=== PATIENT | male | born 1995 | race Caucasian/White ===

== ENCOUNTER 2016-08-09 08:51 | Emergency (ER) | payer OTHER ==
[2016-08-09] MEDS ORDERED: FAMOTIDINE/NS 20 MG/50 ML BAG (S0028) As Ordered ONE (09:34)
[2016-08-09] MEDS ORDERED: methylPREDNISolone INJ 125 MG/2 ML VIAL (J2930) As Ordered ONE (09:34)
[2016-08-09] MEDS ORDERED: diphenhydrAMINE INJ 50MG/ML VIAL (J1200) As Ordered ONE (09:34)
--- NOTE | 2016-08-09 11:52 | EDDOCDS ---
Physician Documentation [facility] Name: Jatinder Esquivel Age: 20 yrs Sex: Male : 1995 Arrival Date: 08/09/2016 Time: 08:51 Bed 8 Private MD: Disposition: 08/09/16 11:17 Discharged to Home/Self Care. Impression: Urticaria. - Condition is Stable. - Discharge Instructions: Allergies, [id number]. - Prescriptions for Pepcid 20 mg Oral Tablet - take 1 tablet by ORAL route every 12 hours for 10 days; 20 tablet. Prednisone 20 mg Oral Tablet - take 3 tablet by ORAL route once daily for 5 days; 15 tablet. diphenhydramine HCl 50 mg Oral Capsule - take 1 capsule by ORAL route every 6 hours As needed; 30 capsule. - Medication Reconciliation, Local Pharmacy Hours form. - Follow up: Mariah Velez [facility]; When: 2 - 3 days; Reason: Recheck today's complaints. - Problem is new. - Symptoms have improved. Historical: - Allergies: no known allergies; - Home Meds: 1. amoxicillin Oral Unknown for wisdom teeth removal. Runs out on 08/12 - PMHx: none; - PSHx: wisdom teeth removed; - Social history: Smoking status: Patient states former smoker of tobacco. No barriers to communication noted, The patient speaks fluent Spanish. - Family history: Not pertinent. - : The pt / caregiver states he / she is not on anticoagulants. Home medication list is obtained from the patient. - Exposure Risk Screening:: None identified. Vital Signs: 08/09 09:09 BP 115 / 73; Pulse 75; Resp 14; Temp 98.2(O); Pulse Ox 96% on R/A; Weight 78.02 kg / js13 172 lbs; Height 5 ft. 7 in. (170.18 cm); Pain 0/10; 11:48 BP 124 / 72; Pulse 72; Resp 16; Temp 97.8; jmk 09:09 Body Mass Index 26.94 (78.02 kg, 170.18 cm) js13 MDM: 09:22 diphenhydrAMINE 50 mg IVP once ordered. sd1 09:23 Famotidine 20 mg IVPB once over 30 mins; dilute in 50mL of NS ordered. sd1 09:23 Solu-MEDROL 125 mg IVP once ordered. sd1 10:02 Financial registration complete. mm15 10:13 [facility] Payment Agreement was scanned into [employer] and attached to record. mm15 Administered Medications: : Drug: diphenhydrAMINE 50 mg [diphenhydramine 50 mg/mL injection solution (1 mL)] Route: jmk IVP; Site: left antecubital; 10:39 Follow up: Response: Confirmed pt not driving. [facility] :43 Drug: Famotidine 20 mg [famotidine 10 mg/mL intravenous solution] Route: IVPB; Infused [facility] Over: 30 mins; Site: left antecubital; 10:39 Follow up: IV Status: Completed infusion [facility] :43 Drug: Solu-MEDROL 125 mg [Solu-Medrol 500 mg intravenous solution (125 mg)] Route: IVP; lonk Site: left antecubital; Signatures: Matilde Vasquez MD MD sd1 William Thompson RN RN jmk Sullivan, Jennifer, RN RN js13 Faye Soriano mm15 The chart was reviewed and I authenticate all verbal orders and agree with the evaluation and treatment provided.Attachments: 10:13 [facility] Payment Agreement mm15 MTDD
--- NOTE | 2016-08-09 11:52 | EDDOCDS ---
Nurse's Notes [facility] Name: Jatinder Esquivel Age: 20 yrs Sex: Male : 1995 Arrival Date: 08/09/2016 Time: 08:51 Bed 8 Private MD: Diagnosis: Urticaria Presentation: 08/09 08:55 Red Flag criteria, patient assessed and taken directly to a bed. ml6 09:06 Presenting complaint: Patient states: Patient noticed hives on his arms yesterday at js13 1500. Patient then noticed that at 1900 the hives were all over his body. Patient took 50 mg of Benadryl at 1900 yesterday and woke up this morning with the hives still and his lips swollen. Patient states his throat feels funny. Adult Sepsis Screening: The patient does not have new or worsening altered mentation. Patient's respiratory rate is less than 22. Systolic blood pressure is greater than 100. Patient has a qSOFA score of 0- Negative Sepsis Screen. Suicide/Homicide risk assessment- the patient denies having any suicidal and/or homicidal ideations and does not present with any other emotional, behavioral or mental health complaints. Status: The patient is an active duty fire sprinkler service technician. Transition of care: patient was not received from another setting of care. 09:06 Acuity: JAD Level 3 13 09:06 Method Of Arrival: Walkin/Carried/Asstd js13 Triage Assessment: 09:09 General: Appears in no apparent distress, Behavior is appropriate for age, cooperative. js13 Pain: Denies pain. Pt Declines HIV testing. Neurological: Level of Consciousness is awake, alert. Respiratory: Onset: The symptoms/episode began/occurred gradually, Airway is patent Respiratory effort is even, unlabored, Respiratory pattern is regular, symmetrical, Breath sounds are clear. Derm: Skin is pink, warm & dry. Historical: - Allergies: no known allergies; - Home Meds: 1. amoxicillin Oral Unknown for wisdom teeth removal. Runs out on 08/12 - PMHx: none; - PSHx: wisdom teeth removed; - Social history: Smoking status: Patient states former smoker of tobacco. No barriers to communication noted, The patient speaks fluent Yakut. - Family history: Not pertinent. - : The pt / caregiver states he / she is not on anticoagulants. Home medication list is obtained from the patient. - Exposure Risk Screening:: None identified. Screenin:06 Screening information is obtained from the patient. Fall risk: No risks identified. jmk Assistance ADL's: requires no assistance with activities of daily living. Abuse/DV Screen: The patient / caregiver reports he/she is: not in a situation that causes fear, pain or injury. Nutritional screening: No deficits noted. Advance Directives: Currently, there is no health care proxy. There is no active DNR order. There is no living will. There is no Power of Fireworks Maker. home support is adequate. Assessment: 09:06 General: Appears skin warm and dry color satisfactory. moist pink oral mucosa. easily jmk vocalizes and accommodates own saliva. lips appear swollen. Patent airway. scattered, irregular margin, flat red rash noted over body with concentrated areas about back. center of red areas is contour band saw operator vertical in color than perimeter.. Cardiovascular: Capillary refill < 3 seconds Clubbing of nail beds is absent Heart tones S1 S2 present Edema is absent. Chest pain is denied. Respiratory: Airway is patent Respiratory effort is even, unlabored, Respiratory pattern is regular, Breath sounds are clear bilaterally. 10:36 General: Appears area to posterior chest has faded. swelling to lower lip has decreased jmk slightly. continues to accommodate own saliva and to vocalize without impairment; no observed resp distress. 11:48 General: Appears rash has faded. otehrwise unchanged. [facility] Vital Signs: 09:09 BP 115 / 73; Pulse 75; Resp 14; Temp 98.2(O); Pulse Ox 96% on R/A; Weight 78.02 kg; 13 Height 5 ft. 7 in. (170.18 cm); Pain 0/10; 11:48 BP 124 / 72; Pulse 72; Resp 16; Temp 97.8; jmk 09:09 Body Mass Index 26.94 (78.02 kg, 170.18 cm) [facility] Vitals: 09:09 Log In Time: August 09, 2016 at 08:48. 13 ED Course: 08:54 Patient visited by Faye Soriano. mm15 08:54 Patient moved to Waiting mm15 08:55 Patient moved to [facility]6 08:56 Matilde Vasquez MD is Attending Physician. sd1 09:06 The patient / caregiver is instructed regarding the plan of care and ED course. jmk 09:07 Triage Initiated js13 09:11 Patient visited by Dimple Hurt RN. js13 09:24 Patient visited by Matilde Vasquez MD. sd1 09:44 Inserted saline lock: 20 gauge in left antecubital area. jmk 10:13 [facility] Payment Agreement was scanned into [employer] and attached to record. mm15 10:39 Patient visited by Calin Singer. jml1 11:17 [facility] sd1 11:48 Discontinued lock intact, bleeding controlled, pressure dressing applied, No jmk redness/swelling at site. No procedures done that require assistance. Administered Medications: 09:43 Drug: diphenhydrAMINE 50 mg [diphenhydramine 50 mg/mL injection solution (1 mL)] Route: jmk IVP; Site: left antecubital; 10:39 Follow up: Response: Confirmed pt not driving. k 09:43 Drug: Famotidine 20 mg [famotidine 10 mg/mL intravenous solution] Route: IVPB; Infused liam Over: 30 mins; Site: left antecubital; 10:39 Follow up: IV Status: Completed infusion k 09:43 Drug: Solu-MEDROL 125 mg [Solu-Medrol 500 mg intravenous solution (125 mg)] Route: IVP; jmk Site: left antecubital; Order Results: There are currently no results for this order. Outcome: 11:17 Discharge ordered by Provider. sd1 11:50 Discharge Assessment: Patient awake, alert and oriented x 3. No cognitive and/or k functional deficits noted. Patient verbalized understanding of disposition instructions. patient administered narcotics - no. The following High Risk Discharge criteria are identified: None. Discharged to home ambulatory. Condition: good. Discharge instructions given to patient, Instructed on discharge instructions, follow up and referral plans. medication usage, Demonstrated understanding of instructions, medications, Pt was receptive of discharge instructions/ teaching. Prescriptions given X 3. No special radiology studies were completed. Property :Personal belongings accompany Pt. 11:51 Patient left the ED. [facility] Signatures: Matilde Vasquez MD MD sd1 William ThompsonRN RN jmDalton Clayton RN RN ml6 Calin Singer jml1 Dimple Hurt,RN RN js13 Faye Soriano mm15 Pinky Lowry, ENGINEERING AID ENGINEERING AID rs6 MTDD
--- NOTE | 2016-08-11 12:52 | EDDOCDS ---
Physician Documentation [facility] Name: Jatinder Esquivel Age: 20 yrs Sex: Male : 1995 Arrival Date: 08/09/2016 Time: 08:51 Bed 8 Private MD: Disposition: 08/09/16 11:17 Discharged to Home/Self Care. Impression: Urticaria. - Condition is Stable. - Discharge Instructions: Allergies, [id number]. - Prescriptions for Pepcid 20 mg Oral Tablet - take 1 tablet by ORAL route every 12 hours for 10 days; 20 tablet. Prednisone 20 mg Oral Tablet - take 3 tablet by ORAL route once daily for 5 days; 15 tablet. diphenhydramine HCl 50 mg Oral Capsule - take 1 capsule by ORAL route every 6 hours As needed; 30 capsule. - Medication Reconciliation, Local Pharmacy Hours form. - Follow up: Mariah Velez [facility]; When: 2 - 3 days; Reason: Recheck today's complaints. - Problem is new. - Symptoms have improved. Historical: - Allergies: no known allergies; - Home Meds: 1. amoxicillin Oral Unknown for wisdom teeth removal. Runs out on 08/12 - PMHx: none; - PSHx: wisdom teeth removed; - Social history: Smoking status: Patient states former smoker of tobacco. No barriers to communication noted, The patient speaks fluent Portuguese. - Family history: Not pertinent. - : The pt / caregiver states he / she is not on anticoagulants. Home medication list is obtained from the patient. - Exposure Risk Screening:: None identified. Vital Signs: 08/09 09:09 BP 115 / 73; Pulse 75; Resp 14; Temp 98.2(O); Pulse Ox 96% on R/A; Weight 78.02 kg / js13 172 lbs; Height 5 ft. 7 in. (170.18 cm); Pain 0/10; 11:48 BP 124 / 72; Pulse 72; Resp 16; Temp 97.8; jmk 09:09 Body Mass Index 26.94 (78.02 kg, 170.18 cm) js13 MDM: 09:22 diphenhydrAMINE 50 mg IVP once ordered. sd1 09:23 Famotidine 20 mg IVPB once over 30 mins; dilute in 50mL of NS ordered. sd1 09:23 Solu-MEDROL 125 mg IVP once ordered. sd1 10:02 Financial registration complete. mm15 10: [facility] Payment Agreement was scanned into [employer] and attached to record. mm15 14:54 T-Sheet-- Draft Copy was scanned into [employer] and attached to record. gb Administered Medications: : Drug: diphenhydrAMINE 50 mg [diphenhydramine 50 mg/mL injection solution (1 mL)] Route: deepa IVP; Site: left antecubital; 10:39 Follow up: Response: Confirmed pt not driving. [facility] :43 Drug: Famotidine 20 mg [famotidine 10 mg/mL intravenous solution] Route: IVPB; Infused [facility] Over: 30 mins; Site: left antecubital; :39 Follow up: IV Status: Completed infusion [facility] :43 Drug: Solu-MEDROL 125 mg [Solu-Medrol 500 mg intravenous solution (125 mg)] Route: IVP; [facility] Site: left antecubital; Signatures: Matilde Vasquez MD MD sd1 William Thompson,RN RN Jennifer Craig, Reg Reg Dimple Knapp,RN RN js13 Faye Soriano mm15 The chart was reviewed and I authenticate all verbal orders and agree with the evaluation and treatment provided.Attachments: 10: [facility] Payment Agreement mm15 14:54 T-Sheet-- Draft Copy gb Chart Complete MTDD
--- NOTE | 2016-08-11 12:53 | EDDOCDS ---
Nurse's Notes [facility] Name: Jatinder Esquivel Age: 20 yrs Sex: Male : 1995 Arrival Date: 08/09/2016 Time: 08:51 Bed 8 Private MD: Diagnosis: Urticaria Presentation: 08/09 08:55 Red Flag criteria, patient assessed and taken directly to a bed. ml6 09:06 Presenting complaint: Patient states: Patient noticed hives on his arms yesterday at js13 1500. Patient then noticed that at 1900 the hives were all over his body. Patient took 50 mg of Benadryl at 1900 yesterday and woke up this morning with the hives still and his lips swollen. Patient states his throat feels funny. Adult Sepsis Screening: The patient does not have new or worsening altered mentation. Patient's respiratory rate is less than 22. Systolic blood pressure is greater than 100. Patient has a qSOFA score of 0- Negative Sepsis Screen. Suicide/Homicide risk assessment- the patient denies having any suicidal and/or homicidal ideations and does not present with any other emotional, behavioral or mental health complaints. Status: The patient is an active duty assistant customer service manager. Transition of care: patient was not received from another setting of care. 09:06 Acuity: JAD Level 3 13 09:06 Method Of Arrival: Walkin/Carried/Asstd js13 Triage Assessment: 09:09 General: Appears in no apparent distress, Behavior is appropriate for age, cooperative. js13 Pain: Denies pain. Pt Declines HIV testing. Neurological: Level of Consciousness is awake, alert. Respiratory: Onset: The symptoms/episode began/occurred gradually, Airway is patent Respiratory effort is even, unlabored, Respiratory pattern is regular, symmetrical, Breath sounds are clear. Derm: Skin is pink, warm & dry. Historical: - Allergies: no known allergies; - Home Meds: 1. amoxicillin Oral Unknown for wisdom teeth removal. Runs out on 08/12 - PMHx: none; - PSHx: wisdom teeth removed; - Social history: Smoking status: Patient states former smoker of tobacco. No barriers to communication noted, The patient speaks fluent Polish. - Family history: Not pertinent. - : The pt / caregiver states he / she is not on anticoagulants. Home medication list is obtained from the patient. - Exposure Risk Screening:: None identified. Screenin:06 Screening information is obtained from the patient. Fall risk: No risks identified. jmk Assistance ADL's: requires no assistance with activities of daily living. Abuse/DV Screen: The patient / caregiver reports he/she is: not in a situation that causes fear, pain or injury. Nutritional screening: No deficits noted. Advance Directives: Currently, there is no health care proxy. There is no active DNR order. There is no living will. There is no Power of Cylinder Block Hole Reliner. home support is adequate. Assessment: 09:06 General: Appears skin warm and dry color satisfactory. moist pink oral mucosa. easily jmk vocalizes and accommodates own saliva. lips appear swollen. Patent airway. scattered, irregular margin, flat red rash noted over body with concentrated areas about back. 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 Cardiovascular: Capillary refill < 3 seconds Clubbing of nail beds is absent Heart tones S1 S2 present Edema is absent. Chest pain is denied. Respiratory: Airway is patent Respiratory effort is even, unlabored, Respiratory pattern is regular, Breath sounds are clear bilaterally. 10:36 General: Appears area to posterior chest has faded. swelling to lower lip has decreased jmk slightly. continues to accommodate own saliva and to vocalize without impairment; no observed resp distress. 11:48 General: Appears rash has faded. otehrwise unchanged. [facility] Vital Signs: 09:09 BP 115 / 73; Pulse 75; Resp 14; Temp 98.2(O); Pulse Ox 96% on R/A; Weight 78.02 kg; 13 Height 5 ft. 7 in. (170.18 cm); Pain 0/10; 11:48 BP 124 / 72; Pulse 72; Resp 16; Temp 97.8; jmk 09:09 Body Mass Index 26.94 (78.02 kg, 170.18 cm) [facility] Vitals: 09:09 Log In Time: August 09, 2016 at 08:48. 13 ED Course: 08:54 Patient visited by Faye Soriano. mm15 08:54 Patient moved to Waiting mm15 08:[address] [facility]6 08:56 Matilde Vasquez MD is Attending Physician. sd1 09:06 The patient / caregiver is instructed regarding the plan of care and ED course. jmk 09:07 Triage Initiated js13 09:11 Patient visited by Dimple Hurt RN. js13 09:24 Patient visited by Matilde Vasquez MD. sd1 09:44 Inserted saline lock: 20 gauge in left antecubital area. jmk 10:13 [facility] Payment Agreement was scanned into [employer] and attached to record. mm15 10:39 Patient visited by Calin Singer. jml1 11:17 [facility] sd1 11:48 Discontinued lock intact, bleeding controlled, pressure dressing applied, No jmk redness/swelling at site. No procedures done that require assistance. 14:54 T-Sheet-- Draft Copy was scanned into [employer] and attached to record. gb Administered Medications: 09:43 Drug: diphenhydrAMINE 50 mg [diphenhydramine 50 mg/mL injection solution (1 mL)] Route: jmk IVP; Site: left antecubital; 10:39 Follow up: Response: Confirmed pt not driving. jmk 09:43 Drug: Famotidine 20 mg [famotidine 10 mg/mL intravenous solution] Route: IVPB; Infused lonk Over: 30 mins; Site: left antecubital; 10:39 Follow up: IV Status: Completed infusion jmk 09:43 Drug: Solu-MEDROL 125 mg [Solu-Medrol 500 mg intravenous solution (125 mg)] Route: IVP; jmk Site: left antecubital; Order Results: There are currently no results for this order. Outcome: 11:17 Discharge ordered by Provider. sd1 11:50 Discharge Assessment: Patient awake, alert and oriented x 3. No cognitive and/or k functional deficits noted. Patient verbalized understanding of disposition instructions. patient administered narcotics - no. The following High Risk Discharge criteria are identified: None. Discharged to home ambulatory. Condition: good. Discharge instructions given to patient, Instructed on discharge instructions, follow up and referral plans. medication usage, Demonstrated understanding of instructions, medications, Pt was receptive of discharge instructions/ teaching. Prescriptions given X 3. No special radiology studies were completed. Property :Personal belongings accompany Pt. 11:51 Patient left the ED. [facility] Signatures: Matilde Vasquez MD MD sd1 William Thompson,RN RN jmk Carlito, Jennifer, Reg Reg gb Odin, Dalton, RN RN ml6 Calin Singer jml1 Dimple Hurt,RN RN js13 Faye Soriano mm15 Pinky Lowry, RESILIENT TILE INSTALLER RESILIENT TILE INSTALLER rs6 Chart Complete MTDD
--- NOTE | 2016-08-11 12:53 | EDDOCDS ---
Physician Documentation [facility] Name: Jatinder Esquivel Age: 20 yrs Sex: Male : 1995 Arrival Date: 08/09/2016 Time: 08:51 Bed 8 Private MD: Disposition: 08/09/16 11:17 Discharged to Home/Self Care. Impression: Urticaria. - Condition is Stable. - Discharge Instructions: Allergies, [id number]-Fewt. - Prescriptions for Pepcid 20 mg Oral Tablet - take 1 tablet by ORAL route every 12 hours for 10 days; 20 tablet. Prednisone 20 mg Oral Tablet - take 3 tablet by ORAL route once daily for 5 days; 15 tablet. diphenhydramine HCl 50 mg Oral Capsule - take 1 capsule by ORAL route every 6 hours As needed; 30 capsule. - Medication Reconciliation, Local Pharmacy Hours form. - Follow up: Mariah Velez [facility]; When: 2 - 3 days; Reason: Recheck today's complaints. - Problem is new. - Symptoms have improved. Historical: - Allergies: no known allergies; - Home Meds: 1. amoxicillin Oral Unknown for wisdom teeth removal. Runs out on 08/12 - PMHx: none; - PSHx: wisdom teeth removed; - Social history: Smoking status: Patient states former smoker of tobacco. No barriers to communication noted, The patient speaks fluent Yi. - Family history: Not pertinent. - : The pt / caregiver states he / she is not on anticoagulants. Home medication list is obtained from the patient. - Exposure Risk Screening:: None identified. Vital Signs: 08/09 09:09 BP 115 / 73; Pulse 75; Resp 14; Temp 98.2(O); Pulse Ox 96% on R/A; Weight 78.02 kg / js13 172 lbs; Height 5 ft. 7 in. (170.18 cm); Pain 0/10; 11:48 BP 124 / 72; Pulse 72; Resp 16; Temp 97.8; jmk 09:09 Body Mass Index 26.94 (78.02 kg, 170.18 cm) js13 MDM: 09:22 diphenhydrAMINE 50 mg IVP once ordered. sd1 09:23 Famotidine 20 mg IVPB once over 30 mins; dilute in 50mL of NS ordered. sd1 09:23 Solu-MEDROL 125 mg IVP once ordered. sd1 10:02 Financial registration complete. mm15 10: [facility] Payment Agreement was scanned into [employer] and attached to record. mm15 14:54 T-Sheet-- Draft Copy was scanned into [employer] and attached to record. gb Administered Medications: : Drug: diphenhydrAMINE 50 mg [diphenhydramine 50 mg/mL injection solution (1 mL)] Route: deepa IVP; Site: left antecubital; 10:39 Follow up: Response: Confirmed pt not driving. [facility] :43 Drug: Famotidine 20 mg [famotidine 10 mg/mL intravenous solution] Route: IVPB; Infused [facility] Over: 30 mins; Site: left antecubital; :39 Follow up: IV Status: Completed infusion [facility] :43 Drug: Solu-MEDROL 125 mg [Solu-Medrol 500 mg intravenous solution (125 mg)] Route: IVP; [facility] Site: left antecubital; Signatures: Matilde Vasquez MD MD sd1 William Thompson,RN RN Jennifer Craig, Reg Reg Dimple Knapp,RN RN js13 Faye Soriano mm15 The chart was reviewed and I authenticate all verbal orders and agree with the evaluation and treatment provided.Attachments: 10: [facility] Payment Agreement mm15 14:54 T-Sheet-- Draft Copy gb Chart Complete MTDD
== END 2016-08-09 11:51 | disposition home or self-care (01) ==
LOC: M ED 08:51
DX: L50.9 Urticaria, unspecified (principal); Z87.891 Personal history of nicotine dependence
CPT/HCPCS: 96365; 96375; 99283; J1200; J2930